=== PATIENT | male | born 1980 | race Two or more races ===

== ENCOUNTER 2017-08-11 22:52 | Emergency (ER) | payer SELFPAY ==
[~2017-08-11] VITALS: Ht 170.2 cm; Wt 79.4 kg
[2017-08-11 23:50] VITALS: BP 152/85
--- NOTE | 2017-08-13 01:34 | Emergency Room Report ---
History of Present Illness General Chief Complaint: Medical Clearance Source: Patient Present Illness HPI Patient presents for clearance for booking Patient reports had a history of asthma This was reported to the [facility] and therefore brought for evaluation Patient denies any chest pain or shortness of breath denies any back or flank pain denies any other medical complaints Allergies: Coded Allergies: No Known Allergies (Unverified , 08/11/17) Patient History Past Medical History: see triage record Pertinent Family History: none Reviewed Nursing Documentation: PMH: Agreed; PSxH: Agreed Nursing Documentation-PMH Past Medical History: No Stated History Review of Systems All Other Systems: negative except mentioned in HPI Physical Exam Vital Signs Date Time Temp Pulse Resp B/P (MAP) Pulse Ox O2 Delivery O2 Flow Rate FiO2 08/11/17 22:58 98.5 101 18 152/85 95 Room Air 98.4 Sp02 EP Interpretation: reviewed, normal General Appearance: well appearing, no apparent distress Head: normocephalic, atraumatic Eyes: bilateral eye PERRL, bilateral eye EOMI ENT: hearing grossly normal, normal pharynx, TMs + canals normal, uvula midline Neck: full range of motion, supple, no meningismus, no bony tend Respiratory: lungs clear, normal breath sounds, no rhonchi, no respiratory distress, no retraction, no accessory muscle use Cardiovascular #1: normal peripheral pulses, regular rate, rhythm, no edema, no gallop, no JVD, no murmur Gastrointestinal: normal bowel sounds, non tender, soft, no mass, no organomegaly, non-distended, no guarding, no hernia, no pulsatile mass, no rebound Musculoskeletal: normal inspection Neurologic: oriented x3, responsive, vacation guide III-XII nml as tested, motor strength/ tone normal, sensory intact Psychiatric: mood/affect normal Skin: normal color, no rash, warm/dry, palpation normal Lymphatic: normal inspection, no adenopathy Medical Decision Making Diagnostic Impression: Primary Impression: ok to book Additional Impression: hx of asthma ER Course Patient has a benign medical evaluation At this time is stable for further booking Last Vital Signs Date Time Temp Pulse Resp B/P (MAP) Pulse Ox O2 Delivery O2 Flow Rate FiO2 08/11/17 23:50 36.13000 104 18 152/85 95 Room Air 209.1 Status: unchanged Disposition: D/C TO LAW ENFORCEMENT IN [facility] Condition: Stable Departure Forms: Halfway Clearance Patient Instructions: Asthma, Adult, [id number] Additional Instructions: As you reported, you have a history of asthma, however at this time there is no sign of asthma exacerbation or the need for any emergency medication Eloise Al DO Aug 13, 2017 01:34
== END 2017-08-11 23:50 | disposition home or self-care (01) ==
LOC: EMR 23:25
DX: Z02.89 Encounter for other administrative examinations (principal); J45.909 Unspecified asthma, uncomplicated
CPT/HCPCS: 99283